=== PATIENT | female | born 1995 | race Caucasian/White ===

== ENCOUNTER 2020-11-14 11:41 | Inpatient (IN) | payer BC ==
[~2020-11-14] VITALS: Ht 170.2 cm; Wt 58.0 kg
[2020-11-14 12:00] VITALS: BP 135/85
[2020-11-14] MEDS ORDERED: magnesium hydroxide 30ml (MOM) UD suspension PO PRN (12:10)
[2020-11-14] MEDS ORDERED: mag hydrox/Alum hydrox/simeth 30ml oral suspension PO PRN (12:10)
[2020-11-14] MEDS ORDERED: acetaminophen 325mg tablet PO PRN ×2 (12:10)
[2020-11-14] MEDS ORDERED: loperamide 2mg capsule PO PRN (12:10)
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
[2020-11-14] MEDS: LORazepam 1 MG tablet PO PRN (19:18)
[2020-11-14 20:06] VITALS: BP 146/81
[2020-11-14] MEDS ORDERED: NO HOME MEDS (20:25)
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
[2020-11-15 07:34] VITALS: BP 117/71
[2020-11-15 09:19] LABS: CHOLESTEROL 182 MG/DL (0-200); HDL CHOLESTEROL 91 MG/DL (35-60); LDL CHOLESTEROL 78 MG/DL (50-100); TRIGLYCERIDES 57 MG/DL (20-135)
[2020-11-15 09:30] LABS: HEMOGLOBIN A1C 5.2 % (4.5-6.2)
[2020-11-15] MEDS: LORazepam 1 MG tablet PO PRN (09:49)
[2020-11-15] MEDS ORDERED: hydrOXYzine 25 MG tablet PO PRN (11:55)
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
[2020-11-15 19:36] VITALS: BP 135/87
[2020-11-15] MEDS: traZODone 50mg tablet PO PRN ×2 (21:46→22:32)
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
[2020-11-16 08:06] VITALS: BP 118/60
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
--- NOTE | 2020-11-16 15:34 | NUR ---
Pt. attended group today. Todays group was about the difference between Growth Mindset vs. Fixed Mindset. We learned about the differences and then discussed what aspect of developing a growth mindset they wanted to work on. Pt. engaged in the group appropriately. She shared her thoughts and feelings around the topic. She showed insight into her mental illness and shared the ways in which she already feels she has a growth mindset and also what she would like to work on. She was alert and oriented X4. Her thought process and thought content were WNL. She was calm and pleasant to this Flare Man and her peers. Terri Joshi LCSW
[2020-11-16] MEDS: LORazepam 1 MG tablet PO PRN (17:07)
[2020-11-16 19:54] VITALS: BP 114/75
[2020-11-16] MEDS: traZODone 50mg tablet PO PRN ×2 (21:40→22:13)
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
[2020-11-17 08:01] VITALS: BP 107/61
--- NOTE | 2020-11-17 13:25 | NUR ---
DISCHARGE NOTE: Pt discharged home, ambulated off the unit accompanied by PCT, all belongings returned. Pt expressed understanding of her discharge instructions and follow up care.
== END 2020-11-17 13:25 | disposition home or self-care (01) | DRG 882 ==
LOC: ADULT MH 11:50
PROVIDERS: ADMIT Psychiatry & Neurology Psychiatry; ATTEND Psychiatry & Neurology Psychiatry
DX: F43.25 Adjustment disorder with mixed disturbance of emotions and conduct (principal); I34.1 Nonrheumatic mitral (valve) prolapse; R45.87 Impulsiveness
CPT/HCPCS: 36415; 80061; 83036; 87081; Q0177